=== PATIENT | female | born 1960 | race Caucasian/White ===

== ENCOUNTER 2017-10-30 07:03 | Day surgery (SDC) | payer BC ==
[2017-10-28 14:20] VITALS: BMI 29.6
[2017-10-30] MEDS ORDERED: PROPOFOL 20 ML ONE ×5 (07:56)
[2017-10-30] MEDS ORDERED: LIDOCAINE HCL/PF 2% SDV 5ML VIAL ONE (07:56)
[2017-10-30] MEDS ORDERED: SUCCINYLCHOLINE CHLORIDE 200 MG/10 ML VIAL ONE (07:57)
[2017-10-30 08:52] VITALS: TEMP 97.8
[2017-10-30 09:35] VITALS: BP 105/57
[2017-10-30 10:23] VITALS: PULSE 64
--- NOTE | 2017-11-02 13:51 | PATH ---
Surgical Pathology Report Patient Name: NIGEL ERAZO [facility]. Rec. #: [id number] /Age/Gender: 1960 (Age: 57) / F Account: [id number] Location: U-ENDOSCOPY Taken: 10/30/2017 Received: 10/30/2017 Reported: 11/02/2017 Physicians: Bebe Elias M.D. Specimen(s) Received A: BX 2ND PORTION DUODENUM B: BX FUNDAL POLYP C: BX ANTRUM Clinical History Preoperative diagnosis: Adenoma surveillance, rule out ulcer Postoperative diagnosis: Antral gastritis, fundus polyp, rule out lipoma, diverticulosis Final Diagnosis A. DUODENUM, SECOND PORTION, BIOPSY: DUODENAL MUCOSA WITH NO PATHOLOGIC CHANGES. NO HISTOLOGIC EVIDENCE OF GLUTEN SENSITIVE ENTEROPATHY (CELIAC SPRUE) IDENTIFIED. B. STOMACH, FUNDAL POLYP, BIOPSY: GASTRIC FUNDIC MUCOSA WITH SMALL LYMPHOID AGGREGATE WITHIN LAMINA PROPRIA. NO ADENOMATOUS CHANGE IDENTIFIED. NO H. PYLORI IDENTIFIED WITH DIFF-QUIK STAIN. C. STOMACH, ANTRUM, BIOPSY: GASTRIC ANTRAL MUCOSA WITH LAMINA PROPRIA FIBROSIS SUGGESTIVE OF HEALED ULCER, AND FOCAL MILD CHRONIC GASTRITIS. NO H. PYLORI IDENTIFIED WITH DIFF-QUIK STAIN. Electronically Signed Lex Dominguez M.D. Gross Description A. Received in formalin, labeled "biopsy second portion of duodenum" are 4 crespo, irregular portions of soft tissue ranging from 0.1-0.6 cm. in greatest dimension. The specimens are submitted in toto in one cassette. B. Received in formalin, labeled "biopsy fundal polyp" is a crespo, irregular portion of soft tissue measuring 0.7 cm. in greatest dimension. The specimen is submitted in toto in one cassette. C. Received in formalin, labeled "biopsy antrum" are 3 crespo, irregular portions of soft tissue ranging from 0.1-0.5 cm. in greatest dimension. The specimens are submitted in toto in one cassette. 10/30/201710/30/2017
== END 2017-10-30 10:39 | disposition home or self-care (01) ==
LOC: JASU-ENDO 07:03
PROVIDERS: ATTEND Internal Medicine Gastroenterology
PROC: 0DB68ZX Excision of Stomach, Via Natural or Artificial Opening Endoscopic, Diagnostic (ICD-10-PCS; 2017-10-30)
PROC: 0DB98ZX Excision of Duodenum, Via Natural or Artificial Opening Endoscopic, Diagnostic (ICD-10-PCS; principal; 2017-10-30 08:00)
DX: K31.7 Polyp of stomach and duodenum (principal); K29.50 Unspecified chronic gastritis without bleeding; E78.5 Hyperlipidemia, unspecified; E03.9 Hypothyroidism, unspecified
CPT/HCPCS: 88305-TC; 88312-TC

== ENCOUNTER 2020-11-12 05:40 | Day surgery (SDC) | payer BC ==
[2020-11-07 09:31] VITALS: BMI 27.8
[2020-11-12 10:25] VITALS: BP 110/74; PULSE 62; TEMP 97.1
== END 2020-11-12 10:55 | disposition home or self-care (01) ==
LOC: JASU-ENDO 05:40
PROVIDERS: ATTEND Internal Medicine Gastroenterology
PROC: 0DBL8ZX Excision of Transverse Colon, Via Natural or Artificial Opening Endoscopic, Diagnostic (ICD-10-PCS; 2020-11-12)
PROC: 0DBN8ZX Excision of Sigmoid Colon, Via Natural or Artificial Opening Endoscopic, Diagnostic (ICD-10-PCS; principal; 2020-11-12 08:30)
DX: Z12.11 Encounter for screening for malignant neoplasm of colon (principal); D12.5 Benign neoplasm of sigmoid colon; D12.3 Benign neoplasm of transverse colon; K57.30 Diverticulosis of large intestine without perforation or abscess without bleeding
CPT/HCPCS: 88305-TC

== ENCOUNTER → 2024-02-23 | Day surgery (SDC) | payer BC | END | disposition home or self-care (01) | LOC: JRADIR 09:59 | PROVIDERS: ATTEND Internal Medicine Endocrinology, Diabetes & Metabolism | PROC: 0G9G3ZX Drainage of Left Thyroid Gland Lobe, Percutaneous Approach, Diagnostic (ICD-10-PCS; principal; 2024-02-23) | DX: E04.1 Nontoxic single thyroid nodule (principal) | CPT/HCPCS: 10005; 76942; 88173; 88305-TC ==